=== PATIENT | male | born 1980 | race Caucasian/White ===

== ENCOUNTER 2019-04-29 20:35 | Emergency (ER) | payer OTHER ==
--- NOTE | 2019-04-29 21:01 | EDM.PDOC ---
ED HPI GENERAL MEDICAL PROBLEM - General Chief Complaint: General Stated Complaint: HEADACHES AND LT SHOULDER IS GOING NUMB Time Seen by Provider: 04/29/19 20:40 - History of Present Illness INITIAL COMMENTS - FREE TEXT/NARRATIVE: HISTORY AND PHYSICAL: History of present illness: The patient is a 38-year-old male with a history of Hodgkin's lymphoma for which she was treated with lymph node removal and chemotherapy and has been remission for the last 3 years and presents with complaints of pain and some swelling to his scalp near the occipital area on the left that he awoke with this morning. The patient says he had a normal weekend without any systemic issues such as fevers chills sore throat runny nose cough and has been eating and drinking normally. He denies any trauma to the area and he does not have any specific neck or upper back pain. He says that when he woke this morning he felt discomfort at the scalp area near his occipital head and felt like there was some swelling there but there was no redness and he had no other issues. He says the pain is radiating down to his posterior neck and to his shoulder on the left side but it is all originating from his scalp. He has no pain with movement of his neck or head and he is not dizzy or lightheaded and has no chest pain or shortness of breath. He has no weakness and he denies any numbness in his left upper extremity but says it is more of a discomfort but it only goes to his shoulder area and not down his arm. Because of his history he had some concerns. The patient says he did not take any [id number] medications and he never does and does not want any pain meds here. He says that he also has some discomfort in his anterior neck and he feels like he might have some swollen glands there. There is no pain when he swallows or eats. Review of systems: As per history of present illness and below otherwise all systems reviewed and negative. Past medical history: As per history of present illness and as reviewed below otherwise noncontributory. Surgical history: As per history of present illness and as reviewed below otherwise noncontributory. Social history: No reported history of drug or alcohol abuse. Family history: As per history of present illness and as reviewed below otherwise noncontributory. Physical exam: General: Well-developed well-nourished man who is nontoxic and speaks clearly in the ED without hoarse or muffled voice and is not breathless. Vital signs are noted by me. Patient moves easily in the ED with his upper extremities head and neck. HEENT: Atraumatic, normocephalic, pupils reactive, negative for conjunctival pallor or scleral icterus, mucous membranes moist, throat clear of exudates and there is some mild posterior oropharyngeal erythema and some erythema of the uvula without swelling or shift, there is some anterior cervical adenopathy with some mild tenderness and no discrete posterior lymphadenopathy or nuchal rigidity, TMs are dulled bilaterally,, neck supple, nontender, trachea midline. On palpation of the skull and scalp the patient does have baseline prominence of the occipital areas bilaterally and at the left side and the scalp there is reproducible tenderness and some minimal swelling appreciated which is not well demarcated and there is no erythema or skin lesions or skin changes appreciated. On palpation of this area I reproduce the pain exactly. He has no midline step-offs tenderness defects of the cervical spine and there is some tenderness with palpation of the trapezius on the left. Lungs: Clear to auscultation, breath sounds equal bilaterally, chest nontender. Heart: S1S2, regular, negative for clicks, rubs, or JVD. Abdomen: Soft, nondistended, nontender. Negative for masses or hepatosplenomegaly. Negative for costovertebral tenderness. Pelvis: Stable nontender. Genitourinary: Deferred. Rectal: Deferred. Extremities: Atraumatic, negative for cords or calf pain. Neurovascular unremarkable. Full range of motion without defects or deficits Neuro: Awake, alert, oriented. Cranial nerves II through XII unremarkable. Cerebellum unremarkable. Motor and sensory unremarkable throughout. Exam nonfocal. Diagnostics: CBC rapid strep mono Therapeutics: The patient was offered medications for pain and declines Impression: Medical Screening exam; soft tissue swelling of occipital scalp left rule out early cellulitis versus cyst Definitive disposition and diagnosis as appropriate pending reevaluation and review of above. nape;left shoulder; neck Pain Score (Numeric/FACES): 8 - Related Data Allergies Allergy/AdvReac Type Severity Reaction Status Date / Time Penicillins Allergy Airway Verified 04/29/19 20:52 Tightness Home Meds: Home Meds . [No Known Home Meds] 04/29/19 [History] Past Medical History Oncologic (Cancer) History: Reports: Hodgkin's Lymphoma Social & Family History - Family History Family Medical History: Noncontributory - Tobacco Use Smoking Status *Q: Never Smoker - Recreational Drug Use Recreational Drug Use: No ED ROS GENERAL - Review of Systems Review Of Systems: Comprehensive ROS is negative, except as noted in HPI. ED EXAM, GENERAL - Physical Exam Exam: See Below (see Dictation) Course - Vital Signs Last Recorded V/S: Last Vital Signs Temp 36.6 C 04/29/19 20:39 Pulse 70 04/29/19 20:39 Resp 18 04/29/19 20:39 BP 142/104 H 04/29/19 20:39 Pulse Ox 96 04/29/19 20:39 - Orders/Labs/Meds Orders: Active Orders 24 hr Category Date Time Status CULTURE STREP A CONFIRMATION [RM] Stat Lab 04/29/19 21:10 Results STREP SCRN A RAPID W CULT CONF [RM] Stat Lab 04/29/19 21:10 Results Labs: Laboratory Tests 04/29/19 04/29/19 Range/Units 21:08 21:08 WBC 8.32 (4.0-11.0) K/uL RBC 5.50 (4.50-5.90) M/uL Hgb 16.4 (13.0-17.0) g/dL Hct 46.3 (38.0-50.0) % MCV 84.2 (80.0-98.0) fL MCH 29.8 (27.0-32.0) pg MCHC 35.4 (31.0-37.0) g/dL RDW Std Deviation 38.2 (28.0-62.0) fl RDW Coeff of Daniela 13 (11.0-15.0) % Plt Count 207 (150-400) K/uL MPV 9.40 (7.40-12.00) fL Neut % (Auto) 59.4 (48.0-80.0) % Lymph % (Auto) 26.6 (16.0-40.0) % [place] % (Auto) 8.5 (0.0-15.0) % Eos % (Auto) 5.0 (0.0-7.0) % Baso % (Auto) 0.5 (0.0-1.5) % Neut # (Auto) 4.9 (1.4-5.7) K/uL Lymph # (Auto) 2.2 (0.6-2.4) K/uL [place] # (Auto) 0.7 (0.0-0.8) K/uL Eos # (Auto) 0.4 (0.0-0.7) K/uL Baso # (Auto) 0.0 (0.0-0.1) K/uL Nucleated RBC % 0.0 /100WBC Nucleated RBCs # 0 K/uL Monoscreen NEGATIVE (NEG) Departure - Departure Time of Disposition: 21:51 Disposition: Home, Self-Care 01 Condition: Good Clinical Impression: Encounter for medical screening examination, Cellulitis of scalp - Discharge Information Referrals: PCP,None [Primary Care Provider] - Forms: ED Department Discharge Additional Instructions: The following information is given to patients seen in the emergency department who are being discharged to home. This information is to outline your options for follow-up care. We provide all patients seen in our emergency department with a follow-up referral. The need for follow-up, as well as the timing and circumstances, are variable depending upon the specifics of your emergency department visit. If you don't have a primary care physician on staff, we will provide you with a referral. We always advise you to contact your personal physician following an emergency department visit to inform them of the circumstance of the visit and for follow-up with them and/or the need for any referrals to a consulting specialist. The emergency department will also refer you to a specialist when appropriate. This referral assures that you have the opportunity for followup care with a specialist. All of these measure are taken in an effort to provide you with optimal care, which includes your followup. Under all circumstances we always encourage you to contact your private physician who remains a resource for coordinating your care. When calling for followup care, please make the office aware that this follow-up is from your recent emergency room visit. If for any reason you are refused follow-up, please contact the [facility] emergency department at and ask to speak to the emergency department charge nurse. [facility] Primary care- [place] [address] Please call and schedule a follow-up appointment in our clinic for reevaluation and further care of this problem as well as maintenance of your chronic issues or follow-up back in [place] when you go home. Return to ER as needed and as discussed. Please take antibiotics as prescribed to you from [facility] Sepsis Event Note - Evaluation Sepsis Screening Result: No Definite Risk - Focused Exam Vital Signs: Vital Signs Temp Pulse Resp BP Pulse Ox 04/29/19 20:39 36.6 C 70 18 142/104 H 96 Date Exam was Performed: 04/29/19 Time Exam was Performed: 21:49 - My Orders Last 24 Hours: My Active Orders 04/29/19 21:10 CULTURE STREP A CONFIRMATION [RM] Stat STREP SCRN A RAPID W CULT CONF [RM] Stat - Assessment/Plan Last 24 Hours: My Active Orders 04/29/19 21:10 CULTURE STREP A CONFIRMATION [RM] Stat STREP SCRN A RAPID W CULT CONF [RM] Stat
== END 2019-04-29 22:08 | disposition home or self-care (01) ==
LOC: MW.ED 20:35
DX: L03.811 Cellulitis of head [any part, except face] (principal); Z88.0 Allergy status to penicillin
CPT/HCPCS: 36415; 85025; 86308; 87081; 87880-QW; 99284

== ENCOUNTER 2019-05-02 19:29 | Emergency (ER) | payer OTHER ==
[2019-05-02] MEDS ORDERED: diphenhydrAMINE 50 MG/ML SDV IVPUSH ONE (19:42)
[2019-05-02] MEDS ORDERED: Sodium Chloride 0.9% 2.5 ML Syringe FLUSH PRN (19:43)
[2019-05-02] MEDS ORDERED: Sodium Chloride 0.9% 10 ML Syringe FLUSH PRN (19:43)
[2019-05-02 20:22] LABS: BLOOD UREA NITROGEN,BUN 13 mg/dL (7.0-18.0); CHLORIDE,CL 104 mmol/L (98-107); GLUCOSE RANDOM 88 mg/dL (74-106); POTASSIUM,K 3.8 mmol/L (3.5-5.1); SODIUM,NA 141 mmol/L (136-148)
--- NOTE | 2019-05-02 20:52 | EDM.PDOC ---
ED HPI GENERAL MEDICAL PROBLEM - General Chief Complaint: Allergic Reaction Stated Complaint: HARD TIME BREATHING,SORE NECK Time Seen by Provider: 05/02/19 19:46 Source of Information: Reports: Patient History Limitations: Reports: No Limitations - History of Present Illness INITIAL COMMENTS - FREE TEXT/NARRATIVE: Old male presents emergency room chief complaint of nausea vomiting and diarrhea after being on Augmentin. 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 Patient is on penicillin because he only has a lump on the back of his head and his throat is sore. Patient says every time he takes the Augmentin he developed abdominal cramps. Patient is concerned because he has a history of lymphoma and wants to make sure that the lump in his head is not his lymphoma reactivating. States this is unusual for him to be sick and he is concerned. Onset: Other (1 week) Onset Date: 04/25/19 Duration: Week(s): (one week), Intermittent Location: Reports: Head, Abdomen Quality: Reports: Dull Severity: Moderate Improves with: Reports: None Worsens with: Reports: Other (medication augmentin) Associated Symptoms: Reports: Nausea/Vomiting Treatments CONTACT LENS BLOCKER AND CUTTER: Reports: Other Medication(s) (augmentin) Chest Pain Score (Numeric/FACES): 5 - Related Data Allergies Allergy/AdvReac Type Severity Reaction Status Date / Time Penicillins Allergy Airway Verified 05/02/19 19:44 Tightness Home Meds: Home Meds Amoxicillin/Clavulanate K [Augmentin XR 1000-62.5 MG] 1 tab PO Q12H 05/02/19 [ History] PHENobarb/Hyoscy/Atropine/Scop [ Tablet] 16.2 mg PO TID PRN 10 Days #30 tablet 05/02/19 [Rx] Past Medical History - Past Health History Medical/Surgical History: Denies Medical/Surgical History Oncologic (Cancer) History: Reports: Hodgkin's Lymphoma - Infectious Disease History Infectious Disease History: Reports: None Social & Family History - Family History Family Medical History: Noncontributory - Tobacco Use Smoking Status *Q: Never Smoker - Caffeine Use Caffeine Use: Reports: None - Recreational Drug Use Recreational Drug Use: No ED ROS ALLERGIC REACTION - Review of Systems Review Of Systems: See Below Constitutional: Reports: Malaise, Weakness HEENT: Reports: No Symptoms Respiratory: Reports: No Symptoms Cardiovascular: Reports: No Symptoms Endocrine: Reports: Fatigue GI/Abdominal: Reports: Abdominal Pain, Diarrhea : Reports: No Symptoms Musculoskeletal: Reports: Shoulder Pain Skin: Reports: No Symptoms Neurological: Reports: No Symptoms Psychiatric: Reports: No Symptoms Hematologic/Lymphatic: Reports: No Symptoms, Other ED EXAM GENERAL NO PERIP PULSE - Physical Exam Exam: See Below Exam Limited By: No Limitations General Appearance: Alert, WD/WN, No Apparent Distress Eye Exam: Bilateral Eye: Abnormal EOM Ears: Normal External Exam, Normal Canal, Hearing Grossly Normal Nose: Normal Inspection, Normal Mucosa, No Blood Throat/Mouth: Normal Inspection, Normal Lips, Normal Teeth, Normal Gums, Normal Oropharynx, Normal Voice, No Airway Compromise Head: Atraumatic, Normocephalic, Other (There is a 3 x 3 cyst in the back of his head. No evidence of infection. Minimal tenderness.) Neck: Normal Inspection, Supple, Non-Tender, Full Range of Motion Respiratory/Chest: No Respiratory Distress, Lungs Clear, Normal Breath Sounds, No Accessory Muscle Use, Chest Non-Tender Cardiovascular: Normal Peripheral Pulses, Regular Rate, Rhythm, No Edema, No Gallop, No JVD, No Rub GI/Abdominal: Normal Bowel Sounds, Soft, Non-Tender, No Organomegaly, No Distention, No Abnormal Bruit, No Mass (Male) Exam: No Hernia, Normal Inspection Back Exam: Normal Inspection Extremities: Normal Inspection, Normal Range of Motion Neurological: Alert, Oriented, CN II-XII Intact, Normal Cognition, Normal Reflexes, No Motor/Sensory Deficits Psychiatric: Normal Affect, Normal Mood Skin Exam: Warm, Dry, Intact, Normal Color Lymphatic: No Adenopathy Course - Vital Signs Text/Narrative:: Presents emergency room pretty anxious about possible allergic reaction. Patient concerned of history of diarrhea on Augmentin. Patient has no evidence of rash or shortness of breath. Patient on Augmentin for possible infection to the head. Patient has no evidence of infection to the head at this point. Patient has a small cystic mass 3 x 3cm that is tender. Patient abdomen is soft nontender no masses no signs of any infection or guarding. Should not had labs done which is normal CBC normal electrolytes. Patient will be discharged home with possible side effect of Augmentin secondary to gastroenteritis. Patient instructed to stop the Augmentin and follow-up with her primary care physician about his cyst in his head. Patient instructed that he has no signs of Hodgkin's disease at this time. Last Recorded V/S: Last Vital Signs Temp 97.3 F 05/02/19 20:39 Pulse 70 05/02/19 20:39 Resp 16 05/02/19 20:39 BP 133/92 H 05/02/19 20:39 Pulse Ox 96 05/02/19 20:39 - Orders/Labs/Meds Orders: Active Orders 24 hr Category Date Time Status EKG Documentation Completion [RC] STAT Care 05/02/19 19:43 Active Sodium Chloride 0.9% [Saline Flush] Med 05/02/19 19:43 Active 10 ml FLUSH ASDIRECTED PRN Sodium Chloride 0.9% [Saline Flush] Med 05/02/19 19:43 Active 2.5 ml FLUSH ASDIRECTED PRN Saline Lock Insert [OM.PC] Stat Oth 05/02/19 19:43 Ordered Medication Orders Sodium Chloride (Saline Flush) 10 ml FLUSH ASDIRECTED PRN PRN Reason: Keep Vein Open Last Admin: 05/02/19 19:48 Dose: 10 ml Sodium Chloride (Saline Flush) 2.5 ml FLUSH ASDIRECTED PRN PRN Reason: Keep Vein Open Last Admin: 05/02/19 19:48 Dose: 2.5 ml Labs: Laboratory Tests 05/02/19 05/02/19 Range/Units 19:38 19:38 WBC 8.53 (4.0-11.0) K/uL RBC 5.62 (4.50-5.90) M/uL Hgb 16.7 (13.0-17.0) g/dL Hct 47.9 (38.0-50.0) % MCV 85.2 (80.0-98.0) fL MCH 29.7 (27.0-32.0) pg MCHC 34.9 (31.0-37.0) g/dL RDW Std Deviation 39.9 (28.0-62.0) fl RDW Coeff of Daniela 13 (11.0-15.0) % Plt Count 221 (150-400) K/uL MPV 9.40 (7.40-12.00) fL Nucleated RBC % 0.0 /100WBC Nucleated RBCs # 0 K/uL Sodium 141 (136-148) mmol/L Potassium 3.8 (3.5-5.1) mmol/L Chloride 104 (98-107) mmol/L Carbon Dioxide 25.0 (21.0-32.0) mmol/L BUN 13 (7.0-18.0) mg/dL Creatinine 1.0 (0.8-1.3) mg/dL Est Cr Clr Drug Dosing 107.78 mL/min Estimated GFR (MDRD) > 60.0 ml/min Glucose 88 (74-106) mg/dL Calcium 9.1 (8.5-10.1) mg/dL Total Bilirubin 0.6 (0.2-1.0) mg/dL AST 29 (15-37) IU/L ALT 37 (14-63) IU/L Alkaline Phosphatase 126 H (46-116) U/L Total Protein 7.8 (6.4-8.2) g/dL Albumin 4.7 (3.4-5.0) g/dL Globulin 3.1 (2.6-4.0) g/dL Albumin/Globulin Ratio 1.5 (0.9-1.6) Meds: Medications Generic Name Dose Route Start Last Admin Trade Name Freq PRN Reason Stop Dose Admin Sodium Chloride 10 ml 05/02/19 19:43 05/02/19 19:48 Saline Flush FLUSH 10 ml ASDIRECTED PRN Administration Keep Vein Open Sodium Chloride 2.5 ml 05/02/19 19:43 05/02/19 19:48 Saline Flush FLUSH 2.5 ml ASDIRECTED PRN Administration Keep Vein Open Discontinued Medications Generic Name Dose Route Start Last Admin Trade Name Freq PRN Reason Stop Dose Admin Diphenhydramine HCl 50 mg 05/02/19 19:42 05/02/19 19:48 Benadryl IVPUSH 05/02/19 19:43 50 mg ONETIME ONE Administration Departure - Departure Time of Disposition: 21:02 Disposition: Home, Self-Care 01 Clinical Impression: Gastroenteritis - Discharge Information *PRESCRIPTION DRUG MONITORING PROGRAM REVIEWED*: No Prescriptions: PHENobarb/Hyoscy/Atropine/Scop [ Tablet] 16.2 mg PO TID PRN 10 Days #30 tablet PRN Reason: Abdominal Pain Instructions: Viral Gastroenteritis, Adult, [id number] Referrals: PCP,None [Primary Care Provider] - Forms: ED Department Discharge Sepsis Event Note - Evaluation Sepsis Screening Result: No Definite Risk - Focused Exam Vital Signs: Vital Signs Temp Pulse Resp BP Pulse Ox 05/02/19 20:39 97.3 F 70 16 133/92 H 96 05/02/19 19:45 98 F 83 16 145/92 H 98 Date Exam was Performed: 05/02/19 Time Exam was Performed: 21:11 - My Orders Last 24 Hours: My Active Orders 05/02/19 19:43 EKG Documentation Completion [RC] STAT Sodium Chloride 0.9% [Saline Flush] 10 ml FLUSH ASDIRECTED PRN Sodium Chloride 0.9% [Saline Flush] 2.5 ml FLUSH ASDIRECTED PRN Saline Lock Insert [OM.PC] Stat - Assessment/Plan Last 24 Hours: My Active Orders 05/02/19 19:43 EKG Documentation Completion [RC] STAT Sodium Chloride 0.9% [Saline Flush] 10 ml FLUSH ASDIRECTED PRN Sodium Chloride 0.9% [Saline Flush] 2.5 ml FLUSH ASDIRECTED PRN Saline Lock Insert [OM.PC] Stat
== END 2019-05-02 21:20 | disposition home or self-care (01) ==
LOC: MW.ED 19:29
DX: K52.9 Noninfective gastroenteritis and colitis, unspecified (principal); Z88.0 Allergy status to penicillin
CPT/HCPCS: 80053; 85027; 93005; 96374; 99284; J1200